=== PATIENT | female | born 2000 | race Hispanic/Latino ===

== ENCOUNTER 2019-05-22 10:57 | Emergency (ER) | payer MEDICAID ==
[2019-05-22 11:38] LABS: BASOPHILS % (AUTO) 0.6 % (0.0-5.0); EOSINOPHILS % (AUTO) 3.5 % (0.0-8.0); HEMATOCRIT 43.6 % (36-48); MEAN CORPUSCULAR HEMOGLOBIN 28.6 pg (27.0-33.0); MEAN CORPUSCULAR HGB CONC 33.3 g/dL (32.0-36.0); MONOCYTES % (AUTO) 5.7 % (3.0-13.0); NEUTROPHILS % (AUTO) 65.9 % (40.0-77.0); PLATELET COUNT (AUTO) 293 K/uL (130-400); RED BLOOD CELL COUNT(AUTO) 5.07 MIL/uL (4.00-5.50); RED CELL DISTRIBUTION WIDTH 12.6 % (11.0-15.5); WHITE BLOOD COUNT (AUTO) 11.4 K/uL (4.8-10.8)
== END 2019-05-22 13:59 | disposition home or self-care (01) ==
LOC: EDH 10:57
DX: O20.0 Threatened abortion (principal); Z3A.01 Less than 8 weeks gestation of pregnancy
CPT/HCPCS: 36415; 76817; 84702; 85025; 86900; 86901

== ENCOUNTER 2024-11-06 13:36 | Emergency (ER) | payer MEDICAID ==
[~2024-11-06] VITALS: Ht 165.1 cm; Wt 87.5 kg
[2024-11-06 14:07] LABS: GLUCOSE, URINE (UA) NEGATIVE (NEGATIVE); LEUKOCYTE ESTERASE ,URINE 500 Leu/uL (NEGATIVE); NITRATE,URINE 1+ (NEGATIVE); OCCULT BLOOD,URINE LARGE (NEGATIVE)
[2024-11-06 14:10] LABS: ADD UA MICROSCOPIC YES; APPEARANCE,URINE HAZY (CLEAR)
[2024-11-06 14:12] LABS: SQUAMOUS EPITHELIAL CELL,UR RARE /HPF (0-2)
[2024-11-06] MEDS ORDERED: CEPH500B PO (15:26)
--- NOTE | 2024-11-06 15:27 | ERN ---
ED Note History of Present Illness Stated Complaint: PAINFUL URINATION Chief Complaint: Painful Urination Time Seen by MD: 13:42 Time Seen by Midlevel: 13:44 Dictation: 24-YEAR-OLD FEMALE COMING IN WITH COMPLAINTS OF DYSURIA THAT STARTED TWO DAYS AGO. PATIENT STATES WENT TO [place] AND THEY GAVE HER AZO. HOWEVER STATES IT HAS NOT HELP SINCE STILL COMPLAINING OF DYSURIA. DENIES ANY FEVER, BACK PAIN, VOMITING OR DIARRHEA. Allergies: Coded Allergies: No Known Drug Allergies (Unverified Allergy, Unknown, 05/22/19) Past Medical History Past Medical History: No Pertinent History Additional Past Medical Hx: denies pmhx Surgical History: LMP: Oct 28, 2024 Review of System Dictation CONSTITUTIONAL: NEGATIVE FOR FEVER,CHILLS, AND WEIGHT LOSS EYES: NEGATIVE FOR INJURY, PAIN,REDNESS, AND DISCHARGE ENT: NEGATIVE FOR INJURY,PAIN OR SWELLING CARDIOVASCULAR: NEGATIVE FOR CHEST PAIN, PALPITATIONS, AND EDEMA RESPIRATORY: NEGATIVE FOR SHORTNESS OF BREATH, COUGH, AND WHEEZING, ABDOMEN/GI: NEGATIVE FOR ABDOMINAL PAIN, NAUSEA, VOMITING, DIARRHEA, AND CONSTIPATION BACK: NEGATIVE FOR INJURY AND PAIN : NEGATIVE FOR INJURY, BLEEDING AND DISCHARGE, COMPLAINING OF DYSURIA MS/EXTREMITY: NEGATIVE FOR INJURY AND DEFORMITY SKIN: NEGATIVE FOR RASH, AND DISCOLORATION NEURO: NEGATIVE FOR HEADACHE, WEAKNESS, NUMBNESS, TINGLING, AND SEIZURE PSYCH: NEGATIVE FOR SUICIDE IDEATION, HOMICIDAL IDEATION, AND HALLUCINATIONS Review of Systems: was completed Initial Vital Sign VS Vital Signs Date Time Temp Pulse Resp B/P (MAP) Pulse Ox O2 Delivery O2 Flow Rate FiO2 11/06/24 13:45 97.9 75 16 114/74 96 Room Air* 0 21 Physical Exam Dictation GENERAL: AWAKE, ALERT, NAD HEAD/FACE: NORMOCEPHALIC, ATRAUMATIC EYES: PERRL, EOMI, VISION AT BASELINE ENT: ORAL CAVITY CLEAR, TMS CLEAR, NO SIGNS OF INFECTION NECK: TRACHEA MIDLINE, SUPPLE, NO NUCHAL RIGIDITY CARDIOVASCULAR: RRR, NORMAL S1/S2, NO MRGS, NO JVD RESPIRATORY: CTAB, NO RESPIRATORY DISTRESS, NO RALES OR WHEEZES ABDOMEN: SOFT, NON-TENDER, NON-DISTENDED, NORMAL BOWEL SOUNDS, NO GUARDING OR REBOUND. SKIN: WARM, DRY, NORMAL TURGOR, NO RASH MS/EXTREMITY: PULSES EQUAL, NO CYANOSIS, NEUROVASCULAR INTACT, FROM NEURO: COAX4, GCS 15, STRENGTH 5/5, CN 2-12 INTACT, NORMAL CEREBELLAR EXAM, NORMAL GAIT, PSYCH: NORMAL BEHAVIOR, MOOD, AND AFFECT NORMAL Results (Laboratory/Radiology) Laboratory/Radiology Laboratory Tests Test 11/06/24 13:58 Urine Color DARK-YELLOW (YELLOW) Urine Appearance HAZY (CLEAR) Urine pH 6.0 (5.0-8.0) Urine Specific [place] 1.007 (1.001-1.031) Urine Protein 30 mg/dL (NEGATIVE) H Urine Glucose (UA) NEGATIVE mg/dL (NEGATIVE) Urine Ketones NEGATIVE mg/dL (NEGATIVE) Urine Occult Blood LARGE (NEGATIVE) H Urine Nitrate 1+ (NEGATIVE) H Urine Bilirubin NEGATIVE mg/dL (NEGATIVE) Urine Urobilinogen 0.2 mg/dL (0.2-1.0) Urine Leukocyte Esterase 500 Bijan/uL (NEGATIVE) H Urine RBC 26-50 /HPF (0-1) H Urine WBC TNTC /HPF (0-1) H Urine Squamous Epithelial Cells RARE /HPF (0-2) Urine Bacteria RARE /HPF (None Seen) Urine HCG, Qualitative NEGATIVE (NEGATIVE) Labs Reviewed?: Yes ED Course ED Course Orders Procedure Category Date Status Time Urinalysis Profile LAB 11/06/24 Complete 14:00 ,Urine Test LAB 11/06/24 Complete 14:00 Culture Urine TYLER 11/06/24 In Process 14:10 Ceftriaxone 1g Vial PHA 11/06/24 Logged (Rocephine 1g Inj) 15:17 Current Medications Medications (Trade) Dose Ordered Sig/Josh Route PRN Reason Start Time Stop Time Status Last Admin Dose Admin Ceftriaxone Sodium (ROCEphine 1G INJ) 1 gm ONCE STAT IM 11/06/24 15:17 11/06/24 15:18 UNV Vital Signs Date Time Temp Pulse Resp B/P (MAP) Pulse Ox O2 Delivery O2 Flow Rate FiO2 11/06/24 13:45 97.9 75 16 114/74 96 Room Air* 0 21 Medical Decision Making MDM MDM: 24-YEAR-OLD FEMALE COMING IN WITH COMPLAINTS OF DYSURIA THAT STARTED TWO DAYS AGO. PATIENT STATES WENT TO [place] AND THEY GAVE HER AZO. HOWEVER STATES IT HAS NOT HELP SINCE STILL COMPLAINING OF DYSURIA. DENIES ANY FEVER, BACK PAIN, VOMITING OR DIARRHEA. UA SHOWS EVIDENCE UR TRACT INFECTION. ROCEPHIN GIVEN IN THE EMERGENCY ROOM. UA SHOWS EVIDENCE OF URINARY TRACT INFECTION. ROCEPHIN GIVEN IN THE EMERGENCY ROOM. WE WILL DISCHARGE PATIENT WITH ANTIBIOTICS. DISCUSSED WITH THE PATIENT ON SIGNS AND SYMPTOMS OF WHEN TO RETURN BACK TO THE EMERGENCY ROOM. PATIENT VERBALIZED UNDERSTANDING, ANSWERED ALL QUESTIONS. DIFFERENTIAL DIAGNOSIS: , URINARY TRACT INFECTION RATIONALE: TESTS CONSIDERED AND ORDERED SECONDARY TO SHARED DECISION MAKING INCLUDE: PREVIOUS OUTSIDE RECORDS REVIEWED: OLD ER VISITS. RISK OF COMPLICATION AND/OR MORBIDITY OR MORTALITY OF PATIENT MANAGEMENT: NONE MEDICATIONS-PER MEDICATION RECONCILIATION NEED FOR HOSPITALIZATION: PATIENT DOES NOT MEET CRITERIA FOR HOSPITALIZATION. NEED FOR EMERGENCY MAJOR/MINOR SURGERY: NO THERE ARE NO SOCIAL CONCERNS WITH THIS PATIENT. PRESCRIPTION DRUG MANAGEMENT PRESCRIPTIONS WILL INCLUDE SYMPTOMATIC CARE PATIENT'S PRIOR EXTERNAL MEDICAL RECORDS FROM OTHER ER VISITS WERE REVIEWED BY ME INDICATED. PRIOR TESTING AND RESULTS FROM PREVIOUS VISITS WERE REVIEWED. PRIOR TESTS WERE TAKEN INTO ACCOUNT WITH MEDICAL DECISION MAKING AND RESOURCE UTILIZATION, INDEPENDENT HISTORIAN/HISTORIANS WERE USED TO OBTAIN COMPLETE MEDICAL HISTORY. I INDEPENDENTLY INTERPRETED THE TEST THAT WERE PERFORMED, RESULTS WERE REVIEWED BY ME AND CONSIDERED FINDINGS ON RADIOLOGY IF ORDERED. MEDICAL MANAGEMENT AND EXAMINATION INTERPRETATION DISCUSSIONS WERE HAD BY ME WITH OTHER QUALIFIED HEALTHCARE PROFESSIONALS INDICATED FOR THE PATIENT'S CARE. DX & DISP Disposition: Discharge Departure Impression: Primary Impression: UTI (urinary tract infection) Condition: Stable Scripts Cephalexin Monohydrate (Keflex) 500 Mg Cap 500 MG PO BID for 7 Days, #28 CAP Prov: DORA MELVIN NP 11/06/24 Additional Instructions: SENT TO THE ER IF YOU DEVELOP ANY FEVER, BACK PAIN NAUSEA OR VOMITING. Referrals: PUNEET ROSE (PCP) Time of Disposition: 15:25 I have reviewed the case, and I agree with, Diagnosis and Plan DORA MELVIN NP Nov 06, 2024 15:27
[2024-11-06 15:49] VITALS: BP 124/70; PULSE 72; RESP 16; TEMP 97.9; O2SAT 99
== END 2024-11-06 15:51 | disposition home or self-care (01) ==
LOC: EDH 13:36
DX: N39.0 Urinary tract infection, site not specified (principal); Z98.890 Other specified postprocedural states
CPT/HCPCS: 99283; 87086; 81001; 81025; 96372; J0696

== ENCOUNTER 2024-11-15 17:21 | Emergency (ER) | payer MEDICAID ==
[~2024-11-15] VITALS: Ht 165.1 cm; Wt 87.1 kg
[~2024-11-15 17:21] MED LIST: CEPH500B PO
[2024-11-15 18:08] LABS: APPEARANCE,URINE CLEAR (CLEAR); GLUCOSE, URINE (UA) NEGATIVE (NEGATIVE); LEUKOCYTE ESTERASE ,URINE NEGATIVE Leu/uL (NEGATIVE); NITRATE,URINE NEGATIVE (NEGATIVE); OCCULT BLOOD,URINE NEGATIVE (NEGATIVE)
[2024-11-15 18:12] LABS: ADD UA MICROSCOPIC NO
--- NOTE | 2024-11-15 19:11 | ERN ---
ED Note History of Present Illness Stated Complaint: UTI Chief Complaint: Painful Urination Time Seen by MD: 17:22 Time Seen by Midlevel: 17:23 Dictation: 24-year-old female presents the emergency department due to reported having some urinary symptoms that have somewhat improved but is still concerned that she might be having urinary tract infection. Patient denies having any fever, chills, nausea, vomiting or abdominal pain. There is no report of any vaginal bleeding or vaginal discharge. Patient states that she is taking just antibiotic treatment for a urinary tract infection and this wanting to know whether or not this is improving. Upon initial evaluation, the patient presents in no acute distress. Allergies: Coded Allergies: No Known Drug Allergies (Unverified Allergy, Unknown, 05/22/19) Emergency Care CORRESPONDENCE COORDINATOR: None Home Meds Active Scripts Cephalexin Monohydrate (Keflex) 500 Mg Cap, 500 MG PO BID for 7 Days, #28 CAP Prov:DORA MELVIN OVEN TENDER 11/06/24 Past Medical History Past Medical History: No Pertinent History Additional Past Medical Hx: denies pmhx Surgical History: PSYCH History: no pertinent psych hx RN Note Reviewed/Agreed w/PFSH: Yes Review of System Dictation : Urinary frequency Initial Vital Sign VS Vital Signs Date Time Temp Pulse Resp B/P (MAP) Pulse Ox O2 Delivery O2 Flow Rate FiO2 11/15/24 17:22 98.8 72 18 134/68 99 11/15/24 17:22 Room Air* 0 21 Physical Exam Dictation General: awake, alert, NAD Head/Face: Normocephalic, atraumatic Eyes: PERRL, EOMI ENT: Oral mucosa moist Neck: Trachea midline, supple Cardiovascular: RRR, no edema Respiratory: Symmetrical, non-labored Abdomen: Soft, non-tender, non-distended, no guarding. Skin: Warm, dry, good turgor, no rash MS/Extremity: Pulses equal, no cyanosis, neurovascular intact, FROM Neuro: COAx4, GCS 15, steady gait, Psych: Normal behavior, mood, and affect normal Results (Laboratory/Radiology) Laboratory/Radiology Laboratory Tests Test 11/15/24 17:57 Urine Color COLORLESS (YELLOW) Urine Appearance CLEAR (CLEAR) Urine pH 6.0 (5.0-8.0) Urine Specific [place] 1.007 (1.001-1.031) Urine Protein NEGATIVE mg/dL (NEGATIVE) Urine Glucose (UA) NEGATIVE mg/dL (NEGATIVE) Urine Ketones NEGATIVE mg/dL (NEGATIVE) Urine Occult Blood NEGATIVE (NEGATIVE) Urine Nitrate NEGATIVE (NEGATIVE) Urine Bilirubin NEGATIVE mg/dL (NEGATIVE) Urine Urobilinogen 0.2 mg/dL (0.2-1.0) Urine Leukocyte Esterase NEGATIVE Bijan/uL Labs Reviewed?: Yes ED Course ED Course Orders Procedure Category Date Status Time Urinalysis Profile LAB 11/15/24 Complete 17:52 ,Urine Test LAB 11/15/24 Logged 18:25 Vital Signs Date Time Temp Pulse Resp B/P (MAP) Pulse Ox O2 Delivery O2 Flow Rate FiO2 11/15/24 17:22 98.8 72 18 134/68 99 Room Air* 0 21 11/15/24 17:22 98.8 72 18 134/68 99 Medical Decision Making MDM MDM: Differential diagnosis: Acute UTI, acute cystitis, dysuria. Rationale: Tests considered and ordered secondary to shared decision making include: Previous outside records reviewed: Old ER visits. Risk of complication and/or morbidity or mortality of patient management: None Medications-Per medication reconciliation Need for hospitalization: Patient does not meet criteria for hospitalization. Need for emergency major/minor surgery: No There are no social concerns with this patient. Prescription drug management Prescriptions will include symptomatic care Patient's prior external medical records from other ER visits were reviewed by me as indicated. Prior testing and results from previous visits were reviewed. Prior tests were taken into account with medical decision making and resource utilization, independent historian/historians were used to obtain complete medical history. I independently interpreted the test that were performed, results were reviewed by me and considered findings on radiology if ordered. Medical management and examination interpretation discussions were had by me with other qualified healthcare professionals as indicated for the patient's care. DX & DISP Disposition: Discharge Departure Impression: Primary Impression: Acute UTI Condition: Stable Referrals: PUNEET ROSE (PCP) Time of Disposition: 19:09 BISHOP ETIENNE Nov 15, 2024 19:11
[2024-11-15 19:43] VITALS: BP 138/69; PULSE 73; RESP 16; TEMP 98.8; O2SAT 97
== END 2024-11-15 19:49 | disposition home or self-care (01) ==
LOC: EDH 17:21
DX: N39.0 Urinary tract infection, site not specified (principal); Z79.899 Other long term (current) drug therapy
CPT/HCPCS: 81003; 81025; 99283